=== PATIENT | female | born 1995 | race African-American/Black ===

== ENCOUNTER 2021-11-01 09:15 | Emergency (ER) | payer MEDICAID ==
[~2021-11-01] VITALS: Ht 172.7 cm; Wt 100.0 kg
[2021-11-01 09:19] VITALS: BP 149/74
[2021-11-01] MEDS ORDERED: KETOROLAC 60MG/2ML VIAL IM ONE (09:45)
[2021-11-01] MEDS ORDERED: CYCL10TA21 MT (12:14)
[2021-11-01] MEDS ORDERED: IBUP-2029 MT (12:14)
== END 2021-11-01 12:48 | disposition home or self-care (01) ==
LOC: ER 12:44
DX: M54.59 Other low back pain (principal); M25.552 Pain in left hip; M25.551 Pain in right hip; Z87.828 Personal history of other (healed) physical injury and trauma
CPT/HCPCS: 72100; 73521; 81025; 96372; 99284; J1885